=== PATIENT | male | born 1935 | race Hispanic/Latino ===

== ENCOUNTER 2018-05-11 10:43 | Day surgery (SDC) | payer OTHER ==
--- NOTE | 2018-05-09 19:03 | EKG ---
Test Date: 2018-05-09 Test Time: 17:33:31 Accountant Manager: LALO MEASUREMENT RESULTS: Intervals: Rate: 49 CT: 178 QRSD: 126 QT: 462 QTc: 417 [place]: P: 47 CT: 178 QRS: -7 T: -68 INTERPRETIVE STATEMENTS: Marked sinus bradycardia with sinus arrhythmia Right bundle branch block T wave abnormality, consider inferolateral ischemia Abnormal ECG Compared to ECG 09/06/2014 12:49:57 T-wave abnormality now present Possible ischemia now present Left ventricular hypertrophy no longer present Electronically Signed On 05-09-18 19:02:34 DRY CLEANING CHECKER by Kunal Barker
[2018-05-11] MEDS ORDERED: Ringers Lactate 1,000 ML IV ONE ×2 (11:11→14:43)
[2018-05-11 11:25] VITALS: TEMP 97
[2018-05-11] MEDS ORDERED: BSS OPTHALMIC SOL 15 ML BOT OPTH ONE (11:55)
[2018-05-11] MEDS ORDERED: LIDOCAINE 1.5% W/EPI AMP 5 ML ONE ×3 (11:55→14:28)
[2018-05-11] MEDS ORDERED: LIDOCAINE 2% MPF 5 ML VIAL ONE (12:07)
[2018-05-11] MEDS ORDERED: PROPOFOL 200 MG/20 ML VIAL IV ONE (12:07)
[2018-05-11] MEDS ORDERED: FENTANYL CITR 100 MCG/2 ML ONE (12:07)
[2018-05-11] MEDS ORDERED: ROCURONIUM 50 MG/5 ML VIAL IV ONE (12:08)
--- NOTE | 2018-05-11 15:36 | P.BOP ---
Preoperative diagnosis: Neoplasm uncertain behavior Postoperative diagnosis: BCC L preauricular and R lateral brow Primary procedure: WLE, FS, layered closed brow, local flap preauricular Security Officers And Guards: NONE,NONE Estimated blood loss: <10ml Specimen: L preauricular (FS) with new deep margin (perm), R lateral brow (FS) Anesthesia: MAC Complications: None Fluids & blood products: See anas. record Transferred to: Recovery Room Condition: Good
[2018-05-11 17:29] VITALS: BP 147/66; O2SAT 99
--- NOTE | 2018-05-12 02:58 | OP ---
Date of Procedure: 05/11/2018 Surgeon: Ysabel Vicente MD Preoperative Diagnosis: Neoplasm of uncertain behavior. 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 Indication For Procedure: The patient presented to the clinic with a large ulcerated lesion of the left preauricular area and a raised flesh-colored lesion just lateral to the end of the right eyebrow, which were clinically suspicious for basal cell carcinomas. The risks, benefits, and alternatives to the procedures were discussed with the patient who agreed to proceed. Procedure: 1. Excision of left preauricular basal cell carcinoma with frozen section, defect 4 x 3 cm and closure by a rhomboid flap via local tissue rearrangement with total surface area of greater than 10 but less than 30 sq cm. 2. Excision right lateral brow basal cell carcinoma with frozen section. Final defect 1.5 x 2 cm with closure via layered intermediate repair approximately 3 cm. Description Of Procedure In Detail: The patient was brought to the operating room. He was placed under monitored anesthesia care. The left preauricular and right lateral brow regions were cleaned with alcohol and injected with 1.5% lidocaine with epinephrine. These areas were prepped and then draped in a sterile fashion. The left preauricular area was examined. There was an ulcerated area of approximately the 1 sq cm with gross tumor most significant at the inferior aspect. The lesion abutted the helix and tragus of the left ear. A gross margin of 2-3 mm was designed. The skin was incised using a 15- blade scalpel and a suture was placed at the superior most aspect indicating 12 o'clock. The lesion was elevated off the underlying soft tissues using a Bovie electrocautery. In the central portion, the lesion was grossly clear but was close to the deep margin. The specimen was sent to Pathology for frozen section analysis. While awaiting these results, the right lateral brow region was examined. The lesion of interest was noted and an ovoid excision was performed with a gross margin of 2 to 3 mm. The specimen was oriented with a suture at 12 o'clock and sent to Pathology. Frozen section analysis of the left preauricular region confirmed an ulcerated basal cell carcinoma with negative peripheral margin, but concern for a very close deep margin. Due to the nature of the tissue, a new deep margin was excised using Bovie electrocautery and the true margin was marked with ink. The specimen was comprised primarily of subcutaneous fat, and was sent for permanent section for better evaluation compared to permanent section. The surrounding tissues were then widely undermined, especially anterior and inferior to the defect. The defect was noted to be 4.3 x 3 cm in diameter. After wide undermining, a rhomboid rotational flap was designed and cut. The skin was rotated into the surgical defect and secured in place using deep 4-0 Vicryl sutures. The skin was then closed in a running fashion with 5-0 fast-absorbing gut. A 1 x 0.75 cm Burow triangle was removed inferiorly from the area in front of the tragus and earlobe resulting in good overall closure of the defect. Attention was then turned to the right lateral brow. The tissues superiorly, inferiorly, and laterally to the defect were undermined and the lateral aspect was advanced over the surgical defect. The deep 4-0 Vicryl sutures were used to secure the deep aspect and the skin was closed in a running fashion using 5-0 fast- absorbing gut. Due to laxity of the skin in this area, no Burow triangle excision was required. The skin of both surgical sites was clean and dried and triple antibiotic ointment was applied. The patient was then returned to care of Anesthesia for transportation back to Day Surgery. Disposition: The patient will be discharged home in the care of his family and follow up with Dr. Vicente in 1 to 2 weeks for evaluation of wound healing. INA Voice ID: [id number] Report ID: [id number] KIMI
== END 2018-05-11 15:59 | disposition home or self-care (01) ==
LOC: PRE 10:43
PROVIDERS: ATTEND Otolaryngology
PROC: 0HB3XZZ Excision of Left Ear Skin, External Approach (ICD-10-PCS; 2018-05-11)
PROC: 0HB1XZZ Excision of Face Skin, External Approach (ICD-10-PCS; 2018-05-11)
PROC: 0HX3XZZ Transfer Left Ear Skin, External Approach (ICD-10-PCS; principal; 2018-05-11 12:00)
DX: C44.219 Basal cell carcinoma of skin of left ear and external auricular canal (principal); C44.319 Basal cell carcinoma of skin of other parts of face; I10 Essential (primary) hypertension; Z79.899 Other long term (current) drug therapy
CPT/HCPCS: 14061; 11642; 12052; 88305 ×2; 88331; 88332; 93005; J2001 ×3; J2704; J3010

== ENCOUNTER 2023-06-01 06:01 | Observation (INO) | payer OTHER ==
[2023-05-30 10:39] LABS: Absolute Basophils 0.1 K/uL (0-0.5); Absolute Eosinophils 0.2 K/uL (0-0.5); Absolute Lymphocytes (CBC) 2.2 K/uL (0.7-4.9); Absolute Monocytes 0.7 K/uL (0.1-1.3); Absolute Neutrophil 4.4 K/uL (1.8-8.0); Basophils % 0.9 % (0-1.3); Hematocrit 41.2 % (39.6-49.0); Hemoglobin 13.7 g/dL (13.6-17.9); Lymphocytes % 29.3 % (15.3-44.8); MCH 28.9 pg (27.0-35.0); MCHC 33.2 g/dL (32.0-36.0); MCV 87.1 fL (80-100); MPV 7.3 fL (7.6-11.3); Neutrophils % 58.8 % (41.7-73.7); Platelets 237 thou/uL (152-406); RBC Red Blood Cell Count 4.74 M/uL (4.33-5.43)
--- NOTE | 2023-05-30 10:41 | RAD REPORT ---
EXAM DESCRIPTION: RAD - Chest Pa And Lat (2 Views) - 05/30/2023 10:35 am CLINICAL HISTORY: Pre op pending knee arthroplasty Chest pain. COMPARISON: CHEST SINGLE VIEW dated 09/06/2014; CHEST PA AND LAT 2 VIEW dated 12/17/2009; ABDOMEN ACUT E SERIES dated 06/20/2008; ABDOMEN ACUTE SERIES dated 07/05/2001 TECHNIQUE: PA and lateral views of the chest were obtained. FINDINGS: The lungs are hyperexpanded compatible with COPD. The heart is upper limit of normal in si ze. No fracture or aggressive bony process. IMPRESSION: COPD without acute process identified.
[2023-05-30 10:45] LABS: PT Prothrombin Time 10.5 SECONDS (9.5-12.5); PTT, Activated Partial Thromb 26.5 SECONDS (24.3-36.9); Protime INR 0.95
[2023-06-01] MEDS: ACETAMINOPHEN 500 MG TAB ONE (06:28)
[2023-06-01] MEDS: CELECOXIB 100 MG CAPSULE ONE (06:28)
[2023-06-01] MEDS: GABAPENTIN 100 MG CAP ONE (06:28)
[2023-06-01] MEDS: Oxycodone HCl/Acetaminophen 5/325 MG TAB ONE (06:28)
[2023-06-01] MEDS: Ringers Lactate 1,000 ML IV ONE ×2 (06:30→10:41)
[2023-06-01] MEDS: dexAMETHasone 10 MG/ML VIAL ONE (07:04)
[2023-06-01] MEDS: FENTANYL CITR 100 MCG/2 ML ONE (07:05)
[2023-06-01] MEDS: DEXMEDETOMIDINE HCL 200 MCG/2 ML VIAL ONE (07:05)
[2023-06-01] MEDS: LIDOCAINE 1% MPF 2 ML AMPULE ONE (07:05)
[2023-06-01] MEDS: EPINEPHRINE 1 MG/ML VIAL ONE (07:05)
[2023-06-01] MEDS: propofoL 200 MG/20 ML VIAL IV ONE (07:05)
[2023-06-01] MEDS: MAGNESIUM SULFATE 1 gm IVPB 1 GM/100 ML BAG IV ONE (07:06)
[2023-06-01] MEDS: BUPIVACAINE 0.25% PF 30 ML VIAL ONE (07:06)
[2023-06-01] MEDS: TRANEXAMIC ACID 1,000 MG/10 ML VIAL IV ONE (07:18)
[2023-06-01] MEDS ORDERED: LIDOCAINE 1% MPF 30 ML VIAL ONE (07:36)
[2023-06-01] MEDS ORDERED: GLYCOPYRROLATE 0.2 MG/ML SYR ONE (07:36)
[2023-06-01] MEDS ORDERED: propofoL 200 MG/20 ML VIAL IV ONE ×4 (07:36→09:33)
[2023-06-01] MEDS ORDERED: ROCURONIUM 50 MG/5 ML VIAL IV ONE (07:37)
[2023-06-01] MEDS: CEFAZOLIN SODIUM 2 GM/VIAL ONE (07:58)
[2023-06-01] MEDS ORDERED: NS 0.9% VIAL 0 ML ONE (08:12)
[2023-06-01] MEDS ORDERED: LIDOCAINE 2% MPF 5 ML VIAL ONE (08:18)
[2023-06-01] MEDS ORDERED: KETAMINE HCL IN 0.9 % NACL 50 MG/5 ML SYRINGE IV ONE (08:18)
--- NOTE | 2023-06-01 10:27 | P.BOP ---
Preoperative diagnosis: Right knee osteoarthritis Postoperative diagnosis: Same Primary procedure: Right total knee arthroplasty Material Requisitioner: NONE,NONE Estimated blood loss: 50 cc Specimen: Right knee bone remnants Findings: See dictation Anesthesia: General Complications: None Implants: Biomet Anne persona 12 CR femur, G tibia, 32 patella, 10 CR poly Fluids & blood products: Per anesthesia record; TT: 71 mins @ 330 mmHg Transferred to: Recovery Room Condition: Good
[2023-06-01] MEDS ORDERED: ONDANSETRON 4 MG/2 ML VIAL IV PRN (10:28)
[2023-06-01] MEDS ORDERED: DOCUSATE NA 100 MG CAP PO PRN (10:28)
[2023-06-01] MEDS ORDERED: ACETAMINOPHEN 325 MG TABLET PO PRN (10:28)
[2023-06-01] MEDS ORDERED: TRAMADOL HCL 50 MG TAB PO PRN (10:30)
--- NOTE | 2023-06-01 10:36 | P.OP ---
Preoperative diagnosis: Right knee osteoarthritis Postoperative diagnosis: Same Primary procedure: Right total knee arthroplasty Anesthesia: General Estimated blood loss: 50 cc Specimen: Right knee bone remnants Findings: See dictation Operative Technique: Indication For Procedure: Steven is an 87 year-old male presenting to my clinic with signs, symptoms and x-ray findings consistent with severe right knee osteoarthritis. I discussed with the patient at length risks and benefits associated with operative and nonoperative treatment. He had failed conservative treatment measures and had significant difficulties with ADLs secondary to his pain. We discussed operative treatment and elected to proceed with right total knee arthroplasty. He expressed understanding and elected to proceed with operative treatment. Description Of Procedure: After informed consent was obtained, the patient was identified in the preoperative holding area. The right lower extremity was marked. The patient was then taken to the PACU where he underwent a right lower extremity adductor canal block performed by Anesthesia. He was then taken to the operating room, transferred to the operating table in supine fashion, and placed under general anesthesia. The right lower extremity was then prepped and draped in usual sterile fashion. A time-out was initiated. The correct patient and procedure were confirmed and identified. The patient did receive his preoperative prophylactic antibiotics. The right lower extremity was then exsanguinated and tourniquet was inflated to 330 mmHg. Approximately 15 cm longitudinal incision was made centered over the anterior aspect of the right knee. Dissection was then taken to the extensor mechanism and a medial parapatellar arthrotomy was performed. The patella was everted and dislocated laterally and the knee was flexed in the fat pad. Medial and lateral meniscus and ACL were all excised exposing the distal femur. Excess hypertrophic s ynovium was also excised within the suprapatellar pouch. The patient had an MRI of his right knee preoperatively for surgical planning and creation of cutting blocks. The cutting block was then placed over the distal femur and pins were then placed. The distal femoral cutting block was then placed over the pins. An conner wing was then used to ensure proper depth cut and the distal femur was then cut. The chamfer cutting guide was then placed over the distal end of the femur. Anterior, posterior cuts as well as anterior and posterior chamfer cuts were then made again confirming proper depth of the cut using an Conner wing. Excess bone remnants were then sent to pathology for further evaluation. Next, attention was taken to the proximal tibia. A tibial jig and tibial cutting block was then placed on proximal aspect of the right tibia and locked into position. Pins were then placed and alignment guide was then used to confirm proper alignment of the cut and then coronal and sagittal planes. Once this was confirmed, the cutting jig was placed over the pins and the proximal tibia was cut. Sizing trays were then selected and size 10 mm spacer was used and there was good overall balance in flexion and extension. Next, the trial implants were then placed using the size 12 standard CR femur and a size G tibia and an 10 mm CR poly. There was overall good range of motion and good stability. The trial implants were then removed. The wound was then irrigated thoroughly with normal saline and the knee was then injected with 20 cc of 0.5% Marcaine both in the posterior capsule and medial and lateral gutters as well as quadriceps tendon and periosteum. The tibia was then punched. The femur was drilled. The cement was then prepared on the back table. Cement was then placed first on the tibial surface followed by size G tibia. Excess cement was removed with [place] elevators. Size 12 standard CR femur was then placed on the distal femur after cement was placed on the distal femur. Excess cement was then removed and a size 10 mm CR trial poly was then placed. The knee was held in extension as the cement hardened. Undersurface of the patella was prepared debriding osteophytes using rongeurs as well as osteophytes.. Cement was placed on the undersurface of the patella after it was cut and a size 32 patella was placed. Once the cement was hardened, the knee was ranged, there was good overall stability both in flexion, extension and as well as stability with varus and valgus stresses. Trial poly was then removed and a size 10 mm CR poly was then placed and locked into position. The knee was then ranged again. There was good overall range of motion both for flexion and extension with good stability. The wound was then irrigated again thoroughly with normal saline using pulse lavage. Tourniquet was let down. Hemostasis was achieved using Bovie electrocautery. Extensor mechanism was then approximated using a #1 Vicryl both in interrupted and running fashion. The fascia was then approximated using 0 Vicryl. Subcutaneous tissue was approximated with a 2-0 Vicryl. Skin was approximated using get. Sterile dressings were applied. The patient was awakened and transferred back in stable condition Complications: None Implants: Biomet Anne persona 12 CR femur, G tibia, 10 CR poly, 32 patella Fluids & blood products: Per anesthesia record; 71 minutes at 330 mmHg Transferred to: Recovery Room Condition: Good
[2023-06-01 10:53] LABS: Hemoglobin 11.9 g/dL (13.6-17.9)
--- NOTE | 2023-06-01 11:17 | RAD REPORT ---
EXAM DESCRIPTION: RAD - Knee Right 2 View - 06/01/2023 11:13 am CLINICAL HISTORY: Post Op COMPARISON: Knee Right 2 View dated 04/30/2020; Knee Right 3 View dated 02/04/2014 FINDINGS: Right total knee arthroplasty has been performed. Skin get are noted. A small amount o f fluid is seen in the suprapatellar joint space. No immediate postsurgical unexpected finding.
--- OUTSIDE RECORDS SUMMARY | 2023-06-01 13:07 | XMS REPORT | Continuity of Care Document ---
Author Name Unknown Address [address] [place] [address] [facility] thconnect Address [address] [place] [address] Care Team Providers Care Crop And Soil Scientist Name Role Phone Caprice Powell Primary Care Physician + [phone] Caprice Powell Attending Clinician Unavailable Doctor Unassigned, Braymer Attending Clinician U navailSHAHRIAR Ramirez Attending Clinician Unavailable Shahriar Gray DO Attending Clinician [phone] Therapy, [facility] Infusion Attending Clinician Unavailable Zaid Carranza MD Attending Clinician [phone] ZAID CARRANZA Attending Clinician Unavailable NAZARIO SANDOVAL Attending Clinician Unavailable Nazario Paulino Attending Clinician [phone] NAZARIO SANDOVAL Admitting Clinician Unavailable Payers Payer Name Policy Type Policy Number Effective Date Expirati on Date Source Allergies, Adverse Reactions, Alerts Allergy Name Allergy Type Status Severity Reaction(s) Onset Date Inactive Date Treating Clinician Comments Source NO KNOWN ALLERGIE S Drug Class Active [facility] Social History Social Habit Start Date Stop Date Quantity Comments Source Sexual orientation U [facility] Exposure to SARS-CoV-2 (event) 2022-06-19 00:00:00 2022-06-29 10:14:00 Not sure [facility] Sex Assigned At 1935 00:00:00 1935 00:00:00 [facility] Smoking Status Start Date Stop Date Source Tobacco smoking consumption unknown [facility] Medications Ordered Medication Name Filled Medication Name Start Date Stop Date Current Medication? Ordering Clinician Indication Dosage Frequency Signature (SIG) Comments Components Source meclizine (TRAVEL-EAS E (MECLIZINE) ) tablet 25 mg 06-29 15:30: 00 06-29 16:02 :00 No 25mg 25 mg, Oral, ONCE, 1 dose, On Tue06/29/22 at 1030, ORAILA [facility] meclizine 25 mg tablet 06-29 00:00: 00 Yes [id number] 25mg Take 1 tablet by mouth every 6 (six) hours. [facility] meclizine 25 mg tablet 06-29 00:00: 00 Yes [id number] 25mg Take 1 tablet by mouth every 6 (six) hours. [facility] albuterol 90 mcg/actuati on inhaler 08-23 00:00: 00 Yes [id number] 2{puff} Inhale 2 Puffs every 4 (four) hours as needed for Wheezing or Shortness of Breath. [facility] benzonatate 100 mg capsule 08-23 00:00: 00 Yes [id number] 100mg Take 1 capsule by mouth 3 (three) times daily as needed for Cough. [facility] albuterol 90 mcg/actuati on inhaler 08-23 00:00: 00 Yes [id number] 2{puff} Inhale 2 Puffs every 4 (four) hours as needed for Wheezing or Shortness of Breath. [facility] benzonatate 100 mg capsule 08-23 00:00: 00 Yes [id number] 100mg Take 1 capsule by mouth 3 (three) times daily as needed for Cough. [facility] albuterol 90 mcg/actuati on inhaler 08-23 00:00: 00 Yes [id number] 2{puff} Inhale 2 Puffs every 4 (four) hours as needed for Wheezing or Shortness of Breath. [facility] benzonatate 100 mg capsule 08-23 00:00: 00 Yes [id number] 100mg Take 1 capsule by mouth 3 (three) times daily as needed for Cough. [facility] albuterol 90 mcg/actuati on inhaler 08-23 00:00: 00 Yes [id number] 2{puff} Inhale 2 Puffs every 4 (four) hours as needed for Wheezing or Shortness of Breath. [facility] benzonatate 100 mg capsule 08-23 00:00: 00 Yes [id number] 100mg Take 1 capsule by mouth 3 (three) times daily as needed for Cough. [facility] Immunizations Ordered Immunization Name Filled Immunization Name Date Status Comments Source BEBTELOVIMAB 2021-08-25 00:00:00 Completed [facility] BEBTELOVIMAB 2021-08-25 00:00:00 Completed [facility] SARS-COV-2 COVID-19 MODERNA VACCINE 2020-06-15 00:00:00 Completed [facility] SARS-COV-2 COVID-19 MODERNA VACCINE 2020-06-15 00:00:00 Completed [facility] SARS-COV-2 COVID-19 MODERNA 12+ YRS VACCINE 2020-06-15 00:00:00 Completed [facility] SARS-COV-2 COVID-19 MODERNA VACCINE 2020-05-18 00:00:00 Completed [facility] SARS-COV-2 COVID-19 MODERNA VACCINE 2020-05-18 00:00:00 Completed [facility] SARS-COV-2 COVID-19 MODERNA 12+ YRS VACCINE 2020-05-18 00:00:00 Completed [facility] SARS-COV-2 COVID-19 MODERNA 12+ YRS VACCINE Unknown Completed [facility] SARS-COV-2 COVID-19 MODERNA 12+ YRS VACCINE Unknown Completed [facility] BEBTELOVIMAB Unknown Completed [facility] Vital Signs Vital Name Observation Time Observation Value Comments S jhonatan Systolic blood pressure 2022-06-29 17:33:00 137 mm[Hg] [facility] Diastolic blood pressure 2022-06-29 17:33:00 74 mm[Hg] [facility] Heart rate 2022-06-29 17:33:00 47 /min [facility] Respiratory rate 2022-06-29 17:33:00 20 /min [facility] Oxygen saturation in Arterial blood by Pulse oximetry 2022-06-29 17:33:00 95 /min [facility] Body temperature 2022-06-29 15:13:00 36.56 Isabel [facility] Body height 2022-06-29 15:13:00 175.3 cm [facility] Body weight 2022-06-29 15:13:00 87.998 kg [facility] BMI 2022-06-29 15:13:00 28.65 kg/m2 [facility] Systolic blood pressure 2021-08-25 22:03:00 152 mm[Hg] [facility] Diastolic blood pressure 2021-08-25 22:03:00 59 mm[Hg] [facility] Heart rate 2021-08-25 22:03:00 49 /min [facility] Body temperature 2021-08-25 22:03:00 36.5 Isabel [facility] Respiratory rate 2021-08-25 22:03:00 18 /min [facility] Oxygen saturation in Arterial blood by Pulse oximetry 2021-08-25 22:03:00 97 /min [facility] Body height 2021-08-25 21:02:00 172.7 cm [facility] Body weight 2021-08-25 21:02:00 88.451 kg [facility] BMI 2021-08-25 21:02:00 29.65 kg/m2 [facility] Systolic blood pressure 2021-08-23 18:45:36 116 mm[Hg] [facility] Diastolic blood pressure 2021-08-23 18:45:36 65 mm[Hg] [facility] Heart rate 2021-08-23 18:45:36 52 /min [facility] Body temperature 2021-08-23 18:45:36 37.39 Isabel [facility] Respiratory rate 2021-08-23 18:45:36 18 /min [facility] Body height 2021-08-23 17:02:00 172.7 cm [facility] Body weight 2021-08-23 17:02:00 83.915 kg [facility] BMI 2021-08-23 17:02:00 28.13 kg/m2 [facility] Oxygen saturation in Arterial blood by Pulse oximetry 2021-08-23 17:02:00 96 /min [place] [facility] Procedures Procedure Date / Time Performed Performing Clinicia n Source REFERRAL- REQUEST/RESPONSE 2023-03-11 06:01:00 Doctor Unassigned, Braymer [facility] XR CHEST 1 VW 2022-06-29 16:26:47 Shahriar Gray [facility] URINALYSIS 2022-06-29 16:04:00 Singer [facility] TROPONIN I 2022-06-29 15:40:00 Singer Shahriar [facility] COMP. METABOLIC PANEL ([id number]) 2022-06-29 15:40:00 Singer [facility] CBC WITH DIFF 2022-06-29 15:40:00 Singer [facility] CONSENT/REFUSAL FOR DIAGNOSIS AND TREATMENT 2022-06-29 15:09:36 Doctor Unassigned, Braymer [facility] EKG-12 LEAD 2021-08-23 19:48:20 Nazario [facility] COVID-19 (ID NOW RAPID TESTING) 2021-08-23 18:27:00 Naazrio Sandoval [facility] TROPONIN I 2021-08-23 18:26:00 Nazario Sandoval [facility] COMP. METABOLIC PANEL ([id number]) 2021-08-23 18:26:00 Nazario Sandoval [facility] CBC WITH DIFF 2021-08-23 18:26:00 Nazario Sandoval [facility] XR CHEST 1 VW 2021-08-23 17:31:43 Nazario Sandoval [facility] NOTICE OF PRIVACY PRACTICES 2021-08-23 16:45:46 Doctor Unassigned, Braymer [facility] CONSENT/REFUSAL FOR DIAGNOSIS AND TREATMENT 2021-08-23 16:43:50 Doctor Unassigned, Braymer [facility] Encounters Start Date/Time End Date/Time Encounter Type Admission Type Attending [facility] Care Facility Care Department Encounter ID Source 2022-10-21 13:57[facility]00 [id number] 2022-09-29 11:59:00 [facility] [id number] [facility] 2022-09-15 11:39:01 Outpatient Caprice Powell [facility] [id number] [facility] 2021-04-15 12:37:24 Outpatient Caprice Powell [facility] [id number] [facility] 2021-04-15 12:31:38 Outpatient Caprice Powell [facility] [id number] [facility] 2021-04-15 12:31:19 Outpatient Caprice Powell [facility] [id number] [facility] 2023-03-11 00:00:00 2023-03-11 00:00:00 Orders Only Doctor Unassigned, Braymer [facility] [id number] [facility] 2022-06-29 10:15:00 2022-06-29 12:36:00 Emergency X SHAHRIAR GRAY [facility] [id number] [facility] 2022-06-29 10:15:00 2022-06-29 12:36:00 Emergency Shahriar Gray [facility] [id number] [id number] [facility] 2021-08-25 16:00:00 2021-08-25 17:00:00 Nurse Visit Therapy, [facility] Covid Infusion Zaid Carranza [facility] [id number] [facility] 2021-08-25 16:00:00 2021-08-25 16:00:00 Outpatient R ZAID CARRANZA [facility] [id number] [facility] 2021-08-23 12:03:00 2021-08-23 15:07:00 Emergency X NAZARIO SANDOVAL [facility] [id number] [facility] 2021-08-23 12:03:00 2021-08-23 15:07:00 Emergency Nazario Sandoval [facility] [id number] [id number] [facility] Results Test Description Test Time Test Comments Results Result Co mments Source [facility] ([id number])2022-06-29 16:16:36* Test Item Value Reference Range Interpretation Comme nts NA (test code = 4111974395) 134 mmol/L 135-145 L K (test code = 2233775521) 4.7 mmol/L 3.5-5.0 CL (test code = 7326709475) 100 mmol/L 98-108 CO2 TOTAL (test code = 9178314215) 27 mmol/L 23-31 AGAP (test code = 2476817344) 7 2-16 BUN (test code = 6231513898) 17 mg/dL 7-23 GLUCOSE (test code = 2945826824) 100 mg/dL 70-110 CREATININE (test code = 0419822731) 0.72 mg/dL 0.60-1.25 TOTAL BILI (test code = 3936822202) 0.7 mg/dL 0.1-1.1 CALCIUM (test code = 4139928359) 9.0 mg/dL 8.6-10.6 T PROTEIN (test code = 4128047858) 7.0 g/dL 6.3-8.2 ALBUMIN (test code = 3898058283) 4.1 g/dL 3.5-5.0 ALK PHOS (test code = 5081981995) 62 U/L 34-122 ALTv (test code = 1742-6) 22 U/L 5-50 AST(SGOT) (test code = 4591363890) 23 U/L 13-40 eGFR (test code = 6893492052) 103.5 mL/min/1.73m2 CLIFFORD (test code = CLIFFORD) Association of Glomerular Filtration Rate (GFR) and Staging of Kidney Disease* + --+ --+ ------+| GFR (mL/min/1.73 m2) ?| With Kidney Damage ?| ?Without Kidney Damage+ --------+ --------+ +| ?>90 ?| ?Stage one ?| ? Normal ?+ ---+ ---+ -------+| ?60-89 ?| ?Stage two ?| ? Decreased GFR ? + --+ --+ ------+| ?30-59 ?| ?Stage three ?| ? Stage three ? + --+ --+ ------+| ?15-29 ?| ?Stage four ? | ? Stage four ?+ ---+ ---+ -------+| ?<15 (or dialysis) ? ?| ?Stage five ? | ? Stage five ?+ ---+ ---+ -------+ *Each stage assumes the associated GFR level has been in effect for at least three months. ?Stages 1 to 5, with or without kidney disease, indicate chronic kidney disease. Notes: Determination of stages one and two (with eGFR >59mL/min/1.73 m2) requires estimation of kidney damage for at least three months as defined by structural or functional abnormalities of the kidney, manifested by either:Pathological abnormalities or Markers of kidney damage (including abnormalities in the composition of the blood or urine or abnormalities in imaging tests). Lab Interpretation (test code = 16026-3) Abnormal [facility] WITH [id number] 16:13:12* Test Item Value Reference Range Interpretation Comme nts WBC (test code = 6690-2) 7.39 See_Comment [Automated Trivie] The system which generated this result transmitted reference range: 4.20 - 10.70 10*3/?L. The reference range was not used to interpret this result as normal/abnormal. RBC (test code = 789-8) 4.82 See_Comment [Automated messa ge] The system which generated this result transmitted reference range: 4.26 - 5.52 10*6/?L. The reference range was not used to interpret this result as normal/abnormal. HGB (test code = 718-7) 12.1 g/dL 12.2-16.4 L HCT (test code = 4544-3) 38.9 % 38.4-49.3 MCV (test code = 787-2) 80.7 fL 81.7-95.6 L MCH (test code = 785-6) 25.1 pg 26.1-32.7 L MCHC (test code = 786-4) 31.1 g/dL 31.2-35.0 L RDW-SD (test code = 96765-0) 43.6 fL 38.5-51.6 RDW-CV (test code = 788-0) 15.1 % 12.1-15.4 PLT (test code = 777-3) 258 See_Comment [Automated Simplilearna ge] The system which generated this result transmitted reference range: 150 - 328 10*3/?L. The reference range was not used to interpret this result as normal/abnormal. MPV (test code = 32929-7) 9.3 fL 9.8-13.0 L NRBC/100 WBC (test code = 1039628612) 0.0 See_Comment [Automated ReadOz ssage] The system which generated this result transmitted reference range: 0.0 - 10.0 /100 WBCs. The reference range was not used to interpret this result as normal/abnormal. NRBC x10^3 (test code = 5179990544) See_Comment [Automated Simplilearna ge] The system which generated this result transmitted reference range: 10*3/?L. The reference range was not used to interpret this result as normal/abnormal. GRAN MAT (NEUT) % (test code = 770-8) 69.8 % IMM GRAN % (test code = 3943404590) 0.50 % LYMPH % (test code = 736-9) 20.2 % MONO % (test code = 5905-5) 7.7 % EOS % (test code = 713-8) 0.7 % BASO % (test code = 706-2) 1.1 % GRAN MAT x10^3(ANC) (test code = 3873108348) 5.16 10*3/uL 1.99-6.95 IMM GRAN x10^3 (test code = 1531281860) 0.04 10*3/uL 0.00-0.06 LYMPH x10^3 (test code = 731-0) 1.49 10*3/uL 1.09-3.23 MONO x10^3 (test code = 742-7) 0.57 10*3/uL 0.36-1.02 EOS x10^3 (test code = 711-2) 0.05 10*3/uL 0.06-0.53 L BASO x10^3 (test code = 704-7) 0.08 10*3/uL 0.01-0.09 Lab Interpretation (test code = 94655-4) [facility] [id number] 19:05:56* Test Item Value Reference Range Interpretation Comments TROPONIN I (test code = 8725402689) <0.012 See_Comment [Automated message] The system which generated this result transmitted reference range: <=0.034 ng/mL. The reference range was not used to interpret this result as normal/abnormal. CLIFFORD (test code = CLIFFORD) Reference (Normal) Range (defined by the 99th percentile reference limit): <= 0.034 ng/mL Note: Cardiac troponin begins to rise 3-4 hours after the onset of ischemia. Repeat in 4-6 hours if the sample was drawn within 3-4 hours of the onset of the symptom and found normal. Diagnosis of myocardial injury is made with acute changes in cTn concentrations with at least one serial sample above the 99th percentile upper reference limit (URL), taken together with the patient's clinical presentation. Biotin has been reported to cause a negative bias, interpret results relative to patient's use of biotin. Lab Interpretation (test code = 56677-0) Normal [facility] (13599)2021-08-23 18:53:57* Test Item Value Reference Range Interpretation Comme nts NA (test code = 3394701306) 139 mmol/L 135-145 K (test code = 4092361841) 3.8 mmol/L 3.5-5.0 CL (test code = 9075136003) 105 mmol/L 98-108 CO2 TOTAL (test code = 8775902706) 25 mmol/L 23-31 AGAP (test code = 6817434499) 2-16 BUN (test code = 7893673483) 15 mg/dL 7-23 GLUCOSE (test code = 7981270166) 121 mg/dL 70-110 H CREATININE (test code = 3423217293) 0.87 mg/dL 0.60-1.25 TOTAL BILI (test code = 3579713562) 0.4 mg/dL 0.1-1.1 CALCIUM (test code = 6036782383) 8.5 mg/dL 8.6-10.6 L T PROTEIN (test code = 8268481841) 6.5 g/dL 6.3-8.2 ALBUMIN (test code = 7159836970) 3.8 g/dL 3.5-5.0 ALK PHOS (test code = 3680202890) 47 U/L 34-122 ALTv (test code = 1742-6) 44 U/L 5-50 AST(SGOT) (test code = 9994838843) 46 U/L 13-40 H eGFR (test code = 7629711486) mL/min/1.73m2 CLIFFORD (test code = CLIFFORD) Association of Glomerular Filtration Rate (GFR) and Staging of Kidney Disease* + --+ --+ ------+| GFR (mL/min/1.73 m2) ?| With Kidney Damage ?| ?Without Kidney Damage+ --------+ --------+ +| ?>90 ?| ?Stage one ?| ? Normal ?+ ---+ ---+ -------+| ?60-89 ?| ?Stage two ?| ? Decreased GFR ? + --+ --+ ------+| ?30-59 ?| ?Stage three ?| ? Stage three ? + --+ --+ ------+| ?15-29 ?| ?Stage four ? | ? Stage four ?+ ---+ ---+ -------+| ?<15 (or dialysis) ? ?| ?Stage five ? | ? Stage five ?+ ---+ ---+ -------+ *Each stage assumes the associated GFR level has been in effect for at least three months. ?Stages 1 to 5, with or without kidney disease, indicate chronic kidney disease. Notes: Determination of stages one and two (with eGFR >59mL/min/1.73 m2) requires estimation of kidney damage for at least three months as defined by structural or functional abnormalities of the kidney, manifested by either:Pathological abnormalities or Markers of kidney damage (including abnormalities in the composition of the blood or urine or abnormalities in imaging tests). Lab Interpretation (test code = 05566-2) Abnormal [facility] WITH [id number] 18:39:35* Test Item Value Reference Range Interpretation Comme nts WBC (test code = 6690-2) See_Comment [Automated Trivie] The system which generated this result transmitted reference range: 4.20 - 10.70 10*3/?L. The reference range was not used to interpret this result as normal/abnormal. RBC (test code = 789-8) See_Comment [Automated Simplilearna [place]] The system which generated this result transmitted reference range: 4.26 - 5.52 10*6/?L. The reference range was not used to interpret this result as normal/abnormal. HGB (test code = 718-7) 11.3 g/dL 12.2-16.4 L HCT (test code = 4544-3) 35.7 % 38.4-49.3 L MCV (test code = 787-2) 80.0 fL 81.7-95.6 L MCH (test code = 785-6) 25.3 pg 26.1-32.7 L MCHC (test code = 786-4) 31.7 g/dL 31.2-35.0 RDW-SD (test code = 12936-7) 47.7 fL 38.5-51.6 RDW-CV (test code = 788-0) 16.5 % 12.1-15.4 H PLT (test code = 777-3) See_Comment [Automated Trivie] The system which generated this result transmitted reference range: 150 - 328 10*3/?L. The reference range was not used to interpret this result as normal/abnormal. MPV (test code = 21756-8) 10.1 fL 9.8-13.0 NRBC/100 WBC (test code = 6047794377) See_Comment [Automated me ssage] The system which generated this result transmitted reference range: 0.0 - 10.0 /100 WBCs. The reference range was not used to interpret this result as normal/abnormal. NRBC x10^3 (test code = 1517450765) <0.01 See_Comment [Automated messa ge] The system which generated this result transmitted reference range: 10*3/?L. The reference range was not used to interpret this result as normal/abnormal. GRAN MAT (NEUT) % (test code = 770-8) 58.6 % IMM GRAN % (test code = 7284704477) 0.20 % LYMPH % (test code = 736-9) 27.4 % MONO % (test code = 5905-5) 12.0 % EOS % (test code = 713-8) 1.3 % BASO % (test code = 706-2) 0.5 % GRAN MAT x10^3(ANC) (test code = 0243584164) 3.57 10*3/uL 1.99-6.95 IMM GRAN x10^3 (test code = 3177817319) <0.03 0.00-0.06 LYMPH x10^3 (test code = 731-0) 1.67 10*3/uL 1.09-3.23 MONO x10^3 (test code = 742-7) 0.73 10*3/uL 0.36-1.02 EOS x10^3 (test code = 711-2) 0.08 10*3/uL 0.06-0.53 BASO x10^3 (test code = 704-7) 0.03 10*3/uL 0.01-0.09 Lab Interpretation (test code = 12840-1) Abnormal [facility]"
[2023-06-01] MEDS: HYDROCODONE/APAP 5/325 MG TAB PO PRN (14:15)
[2023-06-01 14:16] VITALS: BMI 28.6
[2023-06-01] MEDS: CEFAZOLIN SODIUM 2 GM in NA CHLORIDE 0.9% 100 ML IVPB SCH (16:42)
[2023-06-01] MEDS: CYCLOSPORINE OPTH SCH (21:00)
[2023-06-02] MEDS: ENOXAPARIN 30 MG/0.3 ML SQ SCH (06:20)
[2023-06-02 06:53] LABS: Hematocrit 34.2 % (39.6-49.0); Hemoglobin 11.5 g/dL (13.6-17.9)
[2023-06-02] MEDS: AMLODIPINE 5 MG TAB PO SCH (08:38)
[2023-06-02] MEDS: MULTIVITAMIN TAB PO SCH (08:38)
[2023-06-02] MEDS: CELECOXIB 100 MG CAPSULE PO SCH (08:38)
[2023-06-02 09:16] VITALS: O2SAT 95
[2023-06-02 12:39] VITALS: BP 95/54; TEMP 98.4
--- NOTE | 2023-06-02 14:03 | P.DS ---
Admission Date: 06/01/23 Discharge Date: 06/02/23 Disposition: DC HOME/HOME HEALTH CARE Discharge Condition: GOOD Reason for Admission: Right total knee arthroplasty Consultations: None Procedures: Right total knee arthroplasty Brief History of Present Illness: Steven is an 87-year-old male who underwent right total knee arthroplasty on June 01, 2023 without complication. Hospital Course: Patient was admitted to floor in stable condition. Physical therapy was consulted to aid with mobilization. Patient mobilize safely and was discharge on June 02, 2023 in stable condition. He will follow-up in 2 weeks for staple removal. [facility] was [facility] for DVT prophylaxis and pain medication. Vital Signs/Physical Exam: Temp Pulse Resp BP Pulse Ox 98.4 F 52 15 95/54 L 95 06/02/23 12:00 06/02/23 12:00 06/02/23 12:00 06/02/23 12:00 06/02/23 12:00 Laboratory Data at Discharge: WBC 7.50 thou/uL (4.3-10.9) 05/30/23 10:26 Hgb 11.5 g/dL (13.6-17.9) L 06/02/23 06:20 Hct 34.2 % (39.6-49.0) L 06/02/23 06:20 Plt Count 237 thou/uL (152-406) 05/30/23 10:26 PT 10.5 SECONDS (9.5-12.5) 05/30/23 10:26 INR 0.95 05/30/23 10:26 APTT 26.5 SECONDS (24.3-36.9) 05/30/23 10:26 Sodium 139 mEq/L (136-145) 05/30/23 10:26 Potassium 4.0 mEq/L (3.5-5.1) 05/30/23 10:26 BUN 17 mg/dL (7-18) 05/30/23 10:26 Creatinine 0.95 mg/dL (0.70-1.30) 05/30/23 10:26 Glucose 102 mg/dL (74-106) 05/30/23 10:26 Home Medications: Cyclosporine [Restasis] 1 drop EACH EYE BID 05/09/18 Docosahexanoic AC/Epa [Fish Oil 1,000 MG*] 1,000 mg PO BID 05/09/18 Multivitamin [Multivitamins] 1 each PO DAILY 05/09/18 Amlodipine Besylate 5 mg PO DAILY 05/30/23 Hydrocodone 5/APAP 325 [[place] 5/325*] 1 tab PO Q6H PRN tab 06/02/23 Physician Discharge Instructions: Home Health arranged: [facility] Colt Salazar P:[phone] F:[phone] Keep dressing clean, dry and intact. Begin Xarelto tomorrow June 03, 2023 in the morning with breakfast and take once daily. Continue use of FANG hose for 2 weeks to aid with swelling. Follow-up with Dr. Brantley in 2 weeks for staple removal. Diet: Regular Activity: Weight bearing as tolerated Followup: Rohan Olivas MD [Primary Care Provider] - Dylan Brantley MD [ACTIVE - CAN ADMIT] - 1-2 Weeks
== END 2023-06-02 13:06 | disposition home health service (06) ==
LOC: OR 06:01 → 4TH 13:05
PROVIDERS: ADMIT Orthopaedic Surgery Sports Medicine; ATTEND Orthopaedic Surgery Sports Medicine
PROC: 0SRC069 Replacement of Right Knee Joint with Oxidized Zirconium on Polyethylene Synthetic Substitute, Cemented, Open Approach (ICD-10-PCS; principal; 2023-06-01 08:00)
DX: M17.11 Unilateral primary osteoarthritis, right knee (principal)
CPT/HCPCS: 31720; 36415; 71046; 80048; 85014; 85018; 85025; 85610; 85730; 88304; 88305; 88311; 94010; 97116; 97139; 97161; 97530; A4216; C1776; J0171; J1100; J1650; J2001; J2704; J3010; J3475; J7120

== ENCOUNTER 2025-01-01 07:59 | Emergency (ER) | payer OTHER ==
[2025-01-01] MEDS ORDERED: ONDANSETRON 4 MG/2 ML VIAL ONE (08:01)
--- NOTE | 2025-01-01 08:11 | RAD REPORT ---
EXAM: CT brain without contrast HISTORY: STROKE ALERT COMPARISON: None TECHNIQUE: Multiple contiguous axial images were obtained and a CT of the brain without contrast. Sag ittal and coronal reformats were performed. One or more of the following dose reduction techniques were used: Automated exposure control, adjust ment of the mA and/or kV according to patient size, and/or iterative reconstruction. FINDINGS: No evidence of hydrocephalus, intracranial hemorrhage, or extra-axial fluid collection. Prominent generalized brain atrophy. Mild diminished density is seen in left frontal lobe. No eviden ce of midline shift or areas of brain edema. The calvarium is intact. The visualized paranasal sinuses and mastoid air cells are essentially clear . IMPRESSION: No acute hemorrhage, hydrocephalus or midline shift. Diminished density is seen in the left frontal lobe which may represent subacute ischemia. MRI brain may be useful for confirmation. The findings were communicated with Glen Contreras MD at 01/01/2025 8:08 AM by telephone.
[2025-01-01] MEDS ORDERED: HYDRALAZINE HCL 20 MG/ML VIAL ONE (08:12)
[2025-01-01 08:16] LABS: Absolute Lymphocytes (CBC) 2.0 K/uL (0.7-4.9); Hematocrit 41.4 % (39.6-49.0); Hemoglobin 13.9 g/dL (13.6-17.9); MCH 28.7 pg (27.0-35.0); MCHC 33.7 g/dL (32.0-36.0); MCV 85.3 fL (80-100); MPV 7.1 fL (7.6-11.3); Nucleated RBC Absolute Count 0.0 (0-0); Nucleated Red Blood Cells % 0.4 % (0-0); RBC Red Blood Cell Count 4.85 M/uL (4.33-5.43); White Blood Count 7.40 thou/uL (4.3-10.9)
[2025-01-01 08:25] LABS: PT Prothrombin Time 11.4 SECONDS (10-13.0); PTT, Activated Partial Thromb 24.9 SECONDS (27.2-37.4); Protime INR 1.01
[2025-01-01 08:35] LABS: Anion Gap 10.6 mEq/L (5.0-15.0); BUN Blood Urea Nitrogen 15.0 mg/dL (7-18); Glucose Level 167.0 mg/dL (74-106); Potassium 3.6 mEq/L (3.5-5.1); Troponin High Sensitivity 11.7 pg/mL (<58.9)
--- NOTE | 2025-01-01 08:59 | RAD REPORT ---
EXAMINATION: CTA HEAD CLINICAL INDICATION: STROKE ALERT TECHNIQUE: Axial CT images were obtained through the head after intravenous contrast utilizing angiog raphic protocol with 3D post-processing (maximum intensity projection images, volume rendered images and/or shaded surface rendered images). One or more of the following dose reduction technique s were used: Automated exposure control, adjustment of the mA and/or kV according to patient size, and/or iterative reconstruction. Unless otherwise specified, incidental findings do not require dedic ated imaging follow-up. COMPARISON: No prior exam. FINDINGS: ICA: The petrous, cavernous, and supraclinoid segments of the bilateral internal carotid arteries are normal. The ophthalmic artery origins are visualized and normal. The posterior communicating arteries are patent. SUKHDEV: Anterior cerebral arteries are normal bilaterally. The anterior communicating artery is patent. MCA: Middle cerebral arteries are normal bilaterally. EVALUATION ASSISTANT: Posterior cerebral arteries are normal bilaterally. Vertebrobasilar: No flow seen in the left V4 segment. Right V4 segment is patent with moderate stenos is distally. Basilar artery is patent. 3D images confirm these findings. IMPRESSION: Lack of flow seen left V4 segment suggests age-indeterminate occlusion or dissection. Basilar artery is patent. No significant flow abnormality detected elsewhere.
--- NOTE | 2025-01-01 09:03 | RAD REPORT ---
EXAMINATION: CTA NECK CLINICAL INDICATION: stroke alert TECHNIQUE: Axial CT images were obtained from the aortic arch to the skull base after intravenous con trast utilizing angiographic protocol with 3D post-processing (maximum intensity projection images, volume rendered images and/or shaded surface rendered images). One or more of the following dose redu ction techniques were used: Automated exposure control, adjustment of the mA and/or kV according to patient size, and/or iterative reconstruction. Unless otherwise specified, incidental findings do not require dedicated imaging follow-up. COMPARISON: No prior exam. FINDINGS: AORTA: The imaged aortic arch is normal. CCA: The common carotid arteries are patent and normal in caliber. ICA/ECA: Mild hard plaquing seen proximal ICAs bilaterally. No significant internal carotid artery st enosis. VERTEBRAL: Distal left V3 segment as well as the V4 segment shows lack of flow suggesting age-indeter minate dissection or occlusion. Right vertebral artery is patent. Patent basilar artery. SOFT TISSUE: No significant neck soft tissue abnormalities. The visualized lung apices are clear. 3D images confirm these findings. IMPRESSION: Distal left V3 segment as well as V4 segments show lack of flow suggesting age-indeterminate dissecti on or occlusion. No significant carotid stenosis seen. NASCET criteria used. Mild 0-49% stenosis Moderate 50-69% stenosis Severe 70-99% stenosis
--- NOTE | 2025-01-01 09:12 | RAD REPORT ---
EXAMINATION: ONE VIEW CHEST XR CLINICAL INDICATION: dizziness TECHNIQUE: Frontal chest projection is submitted. Examination is limited by patient positioning and t echnique. COMPARISON: 05/30/2023 FINDINGS: Patchy opacity is seen in both, greater on the left probably representing mild infiltrate/pneumonia. Heart is moderately enlarged. No displaced fractures identified.
[2025-01-01] MEDS ORDERED: TENECTEPLASE 50 MG/10 ML VIAL IV ONE (09:19)
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
--- NOTE | 2025-01-01 09:37 | ER ---
Nurse's Notes [facility] Name: Steven Whitten Age: 89 yrs Sex: Male : 1935 Arrival Date: 01/01/2025 Time: 07:59 Bed 3 Private MD: Diagnosis: Cerebral infarction, unspecified;Dizziness and giddiness;Essential (primary) hypertension Presentation: 01/01 07:52 Chief complaint: Chief complaint: EMS states: SUDDEN ONSET N/V AND AMS THAT STARTED AT hb 0630 TODAY. 08:12 Coronavirus screen: At this time, the client does not indicate any symptoms associated hb with coronavirus-19. Ebola Screen: No symptoms or risks identified at this time. Initial Sepsis Screen: Does the patient meet any 2 criteria? No. Patient's initial sepsis screen is negative. Does the patient have a suspected source of infection? No. Patient's initial sepsis screen is negative. Risk Assessment: Do you want to hurt yourself or someone else? Patient reports no desire to harm self or others. Onset of symptoms was January 01, 2025 at 06:30. 08:12 Method Of Arrival: EMS: [facility] hb 08:12 Acuity: YODIT 2 hb Historical: - Allergies: 08:13 Ciprofloxacin; hb - PMHx: 08:13 HTN; hb - Immunization history:: Adult Immunizations unknown. - Infectious Disease History:: Denies. - Family history:: not pertinent. - Hospitalizations: : No recent hospitalization is reported. - Social history:: Smoking status: unknown. Screenin:14 [facility] ED Fall Risk Assessment (Adult) History of falling in the last 3 months, hb including since admission No falls in past 3 months (0 pts) Confusion or Disorientation Yes (5 pts) Intoxicated or Sedated No (0 pts) Impaired Gait No (0 pts) Mobility Assist Device Used No (0 pt) Altered Elimination No (0 pt) Score/Fall Risk Level 3 or more points = High Risk Oriented to surroundings, Maintained a safe environment, Educated pt \T\ family on fall prevention, incl call for assistance when getting out of bed. Abuse screen: Denies threats or abuse. Denies injuries from another. Nutritional screening: No deficits noted. Tuberculosis screening: No symptoms or risk factors identified. 08:19 [place] Swallow Protocol Exclusion Criteria: Unable to remain alert for testing: Yes hb Result: FAIL. Assessment: 07:59 Reassessment: CODE STROKE CALLED, PT TO CT WITH MICHELINE RN AND ISABELLE RN. zm 08:00 General: Appears distressed, uncomfortable, Behavior is drowsy. Pain: Complains of pain zm in left frontal area, left side of forehead and left temporal area Unable to use pain scale. Patient is disoriented. 08:00 Neuro: Level of Consciousness is confused, lethargic, Oriented to person. zm Cardiovascular: Heart tones S1 S2 present Capillary refill < 3 seconds in bilateral fingers. Respiratory: Airway is patent Respiratory effort is even, unlabored, Respiratory pattern is symmetrical, snoring Breath sounds are clear bilaterally. GI: Pt is actively vomiting bile. : No signs and/or symptoms were reported regarding the genitourinary system. EENT: No signs and/or symptoms were reported regarding the EENT system. Derm: No signs and/or symptoms reported regarding the dermatologic system. Skin is intact, is fragile, Skin is dry, Skin is pale, Skin temperature is cool. Musculoskeletal: No signs and/or symptoms reported regarding the musculoskeletal system. 08:14 Reassessment: RETURNED FROM CT, ACTIVELY VOMITING. DR CONTRERAS NOTIFIED, MEDICATED hb ORDERED. 09:30 General: Appears in no apparent distress. uncomfortable, Behavior is cooperative, zm drowsy. 09:30 Pain: Complains of pain in left frontal area, left side of forehead and left temporal zm area. Neuro: Level of Consciousness is obeys commands, lethargic, Oriented to person, place, time, situation. Respiratory: Airway is patent Respiratory effort is even, unlabored, Respiratory pattern is regular, symmetrical. 09:30 Reassessment: TNK administered as ordered, see paper chart for reassessments. hb Administration delayed due to provider consult and CT angio results. 10:31 Reassessment: Report given to DINAH Valdivia at [facility]. zm 10:55 Reassessment: Patient appears in no apparent distress at this time. Patient is alert, zm oriented x 3, equal unlabored respirations, skin warm/dry/pink. Patient states symptoms have improved. 11:18 Reassessment:. zm Vital Signs: 08:12 BP 188 / 122; Pulse 50; Resp 15; Temp 98; Pulse Ox 92% on R/A; hb 08:13 BP 203 / 91; Pulse 52; Resp 20; Pulse Ox 93% on R/A; hb 08:22 BP 165 / 78; rn 09:14 Weight 93.9 kg; zm 09:23 BP 146 / 75; rn 10:45 BP 139 / 78; Pulse 58; Resp 21; Temp 98.1; Pulse Ox 97% on R/A; zm [place] Coma Score: 10:45 Eye Response: spontaneous(4). Motor Response: obeys commands(6). Verbal Response: zm oriented(5). Total: 15. NIH Stroke Scale Scores: 10:01 NIHSS Score: 4 rn 10:17 NIHSS Score: 4 ED Course: 08:00 Patient arrived in ED. zm 08:00 Glen Contreras MD is Attending Physician. rn 08:00 Arm band placed on right wrist. zm 08:00 Client placed on continuous cardiac and pulse oximetry monitoring. NIBP monitoring zm applied. court recording monitor on. Pulse ox on. NIBP on. 08:00 Warm blanket given. Verbal reassurance given. zm 08:07 CT Stroke Brain w/o Contrast In Process Unspecified. EDMS 08:13 Triage completed. hb 08:15 Micheline Dela Cruz, RN is Primary Nurse. hb 08:15 Maintain EMS IV. Dressing intact. Good blood return noted. Site clean \T\ dry. Gauge \T\ hb site: 20 RAC. 08:16 Basic Metabolic Panel Sent. hb 08:16 CBC with Diff Sent. hb 08:16 High Sensitivity Troponin Sent. hb 08:16 Protime (+inr) Sent. hb 08:16 Ptt, Activated Sent. hb 08:30 Patient has correct armband on for positive identification. Placed in gown. Bed in low zm position. Call light in reach. Side rails up X2. Adult w/ patient. 08:30 Provided Education on: call light use explained to family. zm 08:[address] In Process Unspecified. EDMS 08:[address] In Process Unspecified. EDMS 09:09 Stroke CXR 1 View In Process Unspecified. EDMS 09:31 initiated transfer to [facility]. bd 09:35 pt accepted in transfer to [facility] [id number] Mclean admin bd approval given by Meera Sandoval. 11:00 No provider procedures requiring assistance completed. zm Administered Medications: 08:09 Drug: hydrALAZINE IVP 10 mg IVP once Route: IVP; Site: right antecubital; hb 11:02 Follow up: Response: No adverse reaction; Blood pressure is lowered zm 08:09 Drug: Ondansetron IVP 4 mg IVP once; over 2 minutes Route: IVP; Site: right antecubital;hb 11:02 Follow up: Response: No adverse reaction; Vomiting decreased 09:30 Drug: TNK FOR STROKE - Tenecteplase IV (Administer 10 ml NS flush BEFORE and zm AFTER tenecteplase) 0.25 mg/kg IV at per protocol once; 0.25mg/kg, MAX DOSE 25 mg, IVP over 5 seconds {Co-Signature: maximo (Micheline Dela Cruz RN).} Route: IV; Rate: per protocol; Site: right antecubital; 11:01 Follow up: Response: No adverse reaction; IV Status: Completed infusion Medication: 10:58 VIS not applicable for this client. Point of Care Testing: Blood Glucose: 08:11 Blood Glucose: 169 mg/dL; Ranges: Outcome: 09:36 ER care complete, transfer ordered by . rn 11:10 Transferred by ground EMS to [facility], Transfer form completed. X-rays sent w/ patient. 11:10 Condition: stable 11:10 Instructed on follow up and referral plans. the need for transfer, Demonstrated understanding of instructions, follow-up care, 11:14 Patient left the ED. NIH Stroke Scale - NIH Stroke Score Date: 01/01/2025 Time: 10:01 Total Score = 4 10. Dysarthria (speech clarity - read or repeat words) - 1(Mild to Moderate) 11. Extinction and Inattention (visual/tactile/auditory/spatial/personal) - 0(No abnormality) 1a. Level of Consciousness (LOC) - 1(Not Alert) 1b. Level of Consciousness (LOC) (Month \T\ Age) - 0(Both) 1c. LOC Commands (Open \T\ Closes Eyes/Strategic Marketing Leader) - 0(Both) 2. Best Gaze (Lateral Gaze Paresis) - 0(Normal) 3. Visual Field Loss - 0(No visual loss) 4. Facial Palsy - 0(Normal) 5a. Left Arm: Motor (10-second hold) - 0(No drift) 5b. Right Arm: Motor (10-second hold) - 0(No drift) 6a. Left Leg: Motor (5-second hold - always test supine) - 0(No drift) 6b. Right Leg: Motor (5-second hold - always test supine) - 0(No drift) 7. Limb Ataxia (finger/nose \T\ heel/chavez - test with eyes open) - 2(Present in two limbs) 8. Sensory Loss (pinprick arms/legs/face) - 0(Normal) 9. Best Language: Aphasia (description/naming/reading) - 0(No aphasia) Initials: dinah NIH Stroke Scale - NIH Stroke Score Date: 01/01/2025 Time: 10:17 Total Score = 4 10. Dysarthria (speech clarity - read or repeat words) - 1(Mild to Moderate) 11. Extinction and Inattention (visual/tactile/auditory/spatial/personal) - 0(No abnormality) 1a. Level of Consciousness (LOC) - 1(Not Alert) 1b. Level of Consciousness (LOC) (Month \T\ Age) - 0(Both) 1c. LOC Commands (Open \T\ Closes Eyes/Strategic Marketing Leader) - 0(Both) 2. Best Gaze (Lateral Gaze Paresis) - 0(Normal) 3. Visual Field Loss - 0(No visual loss) 4. Facial Palsy - 0(Normal) 5a. Left Arm: Motor (10-second hold) - 0(No drift) 5b. Right Arm: Motor (10-second hold) - 0(No drift) 6a. Left Leg: Motor (5-second hold - always test supine) - 0(No drift) 6b. Right Leg: Motor (5-second hold - always test supine) - 0(No drift) 7. Limb Ataxia (finger/nose \T\ heel/chavez - test with eyes open) - 2(Present in two limbs) 8. Sensory Loss (pinprick arms/legs/face) - 0(Normal) 9. Best Language: Aphasia (description/naming/reading) - 0(No aphasia) Initials: Signatures: Dispatcher [employer] EDMS Nataliia Escobar Roman, MD MD rn Baxter, Heather, RN RN hb Peltier, Brian, RN RN bp Martinez, Zaina, DINAH RN Micheline Dela Cruz RN Corrections: (The following items were deleted from the chart) 08:13 07:52 Chief complaint: hb 09:34 09:33 TNK FOR STROKE - Tenecteplase IV (Administer 10 ml NS flush BEFORE zm and AFTER tenecteplase) 23.475 mg IV at per protocol in right antecubital 10:18 08:19 NIHSS Score: 4 [facility] 10:57 08:00 Neuro: Level of Consciousness is lethargic, Oriented to person, [facility] :57 08:00 Respiratory: Airway is patent Respiratory effort is even, unlabored, Respiratory pattern is symmetrical, snoring Breath sounds are clear bilaterally. 11:20 09:30 Reassessment: TNK administered as ordered, see paper chart for reassessments. bp
[2025-01-01 19:22] VITALS: BP 139/78; TEMP 98.1; O2SAT 97
== END 2025-01-01 11:14 | disposition short-term general hospital (02) ==
LOC: ER 07:59
DX: I63.9 Cerebral infarction, unspecified (principal); I10 Essential (primary) hypertension; R29.704 NIHSS score 4
CPT/HCPCS: 96365; 92977; 93005; 85025; 80048; 36415; 85610; 82947; 85730; 84484; 70496; 70498; 70450; 71045; 96375; 99285; 96366; Q9967; J3101; J0360; J2405